=== PATIENT | male | born 1960 | race Caucasian/White ===

== ENCOUNTER 2016-05-12 11:05 | Emergency (ER) | payer OTHER ==
[2016-05-12] MEDS ORDERED: TETRACAINE 0.5% OPHTH SOLN 2 ML BOTTLE ONE (11:30)
[2016-05-12] MEDS ORDERED: FLUORESCEIN NA 1 EA STRIP ONE (11:30)
[2016-05-12] MEDS ORDERED: GENTAMICIN SULFATE 0.3% OPHTHALMIC (EYE DROPS) 5ML BOTTLE ONE (11:30)
[2016-05-12 11:35] VITALS: BP 129/88; PULSE 89; TEMP 97.9; BMI 26.4
[2016-05-12] MEDS ORDERED: TETRACAINE 0.5% HCL 0.6ML DROPPER.BOTTLE OS ONE (11:38)
[2016-05-12] MEDS ORDERED: FLUORESCEIN NA 1 EA STRIP OU ONE (11:38)
[2016-05-12] MEDS ORDERED: GENTAMICIN SULFATE 0.3% OPHTHALMIC (EYE DROPS) 5ML BOTTLE OU ONE (11:39)
[2016-05-12] MEDS ORDERED: IBUPROFEN 400 MG TABLET (FP) PO ONE ×2 (11:40→11:45)
--- NOTE | 2016-05-12 11:43 | PDOC ---
[id number] 4d FLASH BURN TO THE EYES Time Seen by Provider: 05/12/16 11:25 - History of Present Illness Initial Comments: 05/16/16 08:06 The patient sustained a flash burn to the eyes while welding yesterday. Persistent pain and redness bilaterally. Mildly decreased vision. Was wearing goggles, but somehow to light reached his eyes around his eye where Visual acuity 20/50 bilaterally. Conjunctivae moderately injected bilaterally without limbal flush. Pupils equal round and reactive to light and accommodation. Fundi benign. Anterior chambers clear. EOMs full without diplopia. Upon standing, the corneas are clear. There are no abrasions or ulcerations apparent Impression: Mild keratitis secondary to flash burn Plan: Rest of the eyes, cool compresses, and antibiotic drops as directed every 2 hours today. First dose applied in the emergency room. Analgesics for pain. Follow-up [address] Diaz, journeyman power plant operator, to assess healing. Patient and his agreed to timely follow-up in 24 hours as directed. Patient is fully ambulatory and in no severe pain or other distress upon discharge with his to follow up as directed Past History - Past Medical History Allergies/Adverse Reactions: Allergies Allergy/AdvReac Type Severity Reaction Status Date / Time No Known Allergies Allergy Verified 05/12/16 11:09 Home Medications: Ambulatory Orders Atorvastatin Ca [Lipitor] 20 mg PO HS 12/14/12 Escitalopram Oxalate [Lexapro] 30 mg PO DAILY #45 tablet 06/02/13 Acetaminophen W/ Codeine #3 [Tylenol # 3 -] 1 - 2 combo PO Q4H PRN #10 tablet MDD 8 05/12/16 Lorazepam [Ativan] 0.5 mg PO DAILY 05/12/16 GI Disorders: Yes (REFLUX) Hypercholesterolemia: Yes Psychiatric Problems: Yes (DEPRESSION) - Surgical History Appendectomy: Yes - Immunization History Td Vaccination: (UNK) Immunization Up to Date: Yes - Psycho/Social/Smoking Cessation Hx Anxiety: No Suicidal Ideation: No Smoking Status: Yes Smoking History: Former smoker Have you smoked in the past 12 months: No Number of Cigarettes Smoked Daily: 0 Information on smoking cessation initiated: No 'Breaking Loose' booklet given: 08/22/13 Hx Alcohol Use: No Drug/Substance Use Hx: No Substance Use Type: None Hx Substance Use Treatment: No *Physical Exam - Vital Signs Last Vital Signs Temp Pulse Resp BP Pulse Ox 97.9 F 89 16 129/88 100 05/12/16 11:08 05/12/16 11:08 05/12/16 11:08 05/12/16 11:08 05/12/16 11:08 *DC/Admit/Observation/Transfer Diagnosis at time of Disposition: Keratitis - Discharge Dispostion Disposition: HOME Condition at time of disposition: Good Admit: No - Prescriptions Prescriptions: Acetaminophen W/ Codeine #3 [Tylenol # 3 -] 1 - 2 combo PO Q4H PRN #10 tablet MDD 8 PRN Reason: Pain - Referrals Referrals: Fernando Diaz MD [Staff Physician] - 24 hours - Patient Instructions Printed Discharge Instructions: DI for Eye Flash Burn Additional Instructions: Cool compresses. Keeping the eyes closed may ease pain. Avoid bright lights, television, and computer screens Use antibiotic drops every 2 hours while awake today, pain killers as needed See supply chain intern Dr. Diaz tomorrow for recheck. It is important to make sure that healing is progressing properly to avoid permanent eye damage..
== END 2016-05-12 11:53 | disposition home or self-care (01) ==
LOC: FER 11:05
DX: H16.9 Unspecified keratitis (principal); Z87.891 Personal history of nicotine dependence; K21.9 Gastro-esophageal reflux disease without esophagitis; F32.9 Major depressive disorder, single episode, unspecified; E78.00 Pure hypercholesterolemia, unspecified
CPT/HCPCS: 99282-25

== ENCOUNTER 2017-05-15 07:34 | Emergency (ER) | payer OTHER ==
[2017-05-15 07:44] VITALS: BP 143/99; PULSE 82; TEMP 97.6; BMI 26.4
[2017-05-15] MEDS ORDERED: SODIUM CHLORIDE 1,000 ML IV STA (07:50)
[2017-05-15] MEDS ORDERED: KETOROLAC TROMETHAMINE 30 MG/1 ML VIAL IVPUSH ONE (07:50)
--- NOTE | 2017-05-15 07:54 | PDOC ---
History of Present Illness - General Chief Complaint: Chest Pain Stated Complaint: LEFT CHEST PAIN X4 DAYS Time Seen by Provider: 05/15/17 07:42 History Source: Patient Exam Limitations: No Limitations - History of Present Illness Initial Comments: 05/15/17 07:52 56 year old male with history of hyperlipidemia, one pack per day smoker presents with left-sided lateral ribs pain for 4 days. Patient reports a nonexertional reproducible left lateral rib pain worse with movements. Denies midsternal chest pain or shortness of breath. Denies diaphoresis, vomiting. States that the left arm hurts with the left lateral rib pains. States feels like his prior rib fractures. 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 Denies recent illnesses, fevers, chills, cough, vomiting. Past History - Past Medical History Allergies/Adverse Reactions: Allergies Allergy/AdvReac Type Severity Reaction Status Date / Time No Known Allergies Allergy Verified 05/15/17 07:47 Home Medications: Ambulatory Orders Escitalopram Oxalate [Lexapro] 30 mg PO DAILY #45 tablet 06/02/13 Naproxen 500 mg PO BID PRN #14 tablet 05/15/17 COPD: No GI Disorders: Yes (REFLUX) Hypercholesterolemia: Yes Psychiatric Problems: Yes (DEPRESSION) - Surgical History Appendectomy: Yes - Immunization History Td Vaccination: (UNK) Immunization Up to Date: Yes - Suicide/Smoking/Psychosocial Hx Smoking Status: Yes Smoking History: Current every day smoker Have you smoked in the past 12 months: No Number of Cigarettes Smoked Daily: 20 Information on smoking cessation initiated: Yes 'Breaking Loose' booklet given: 05/15/17 Hx Alcohol Use: No Drug/Substance Use Hx: No Substance Use Type: Alcohol Hx Substance Use Treatment: No Review of Systems - Review of Systems Able to Perform ROS?: Yes Comments:: 05/15/17 07:53 GENERAL/CONSTITUTIONAL: No fever, weakness. HEAD, EYES, EARS, NOSE AND THROAT: No change in vision. No ear pain or discharge. No sore throat. CARDIOVASCULAR: No chest pain or shortness of breath. +left lateral rib and left arm pain RESPIRATORY: No cough, wheezing, or hemoptysis. GASTROINTESTINAL: No abdominal pain, nausea, vomiting, diarrhea, or decreased PO intolerance. GENITOURINARY: No dysuria, frequency, or change in urination. MUSCULOSKELETAL: No joint or muscle swelling or pain. No neck or back pain. SKIN: No rash NEUROLOGIC: No headache, vertigo, loss of consciousness, or change in strength/ sensation. ENDOCRINE: No increased thirst. No abnormal weight change. HEMATOLOGIC/LYMPHATIC: No anemia, easy bleeding, or history of blood clots. ALLERGIC/IMMUNOLOGIC: No hives or skin allergy. *Physical Exam - Vital Signs Last Vital Signs Temp Pulse Resp BP Pulse Ox 97.6 F 82 18 143/99 100 05/15/17 07:34 05/15/17 07:34 05/15/17 07:34 05/15/17 07:34 05/15/17 07:34 - Physical Exam Comments: 05/15/17 07:53 GENERAL: Awake, alert, and fully oriented, in no acute distress. HEAD: No signs of trauma EYES: PERRLA, EOMI, sclera anicteric, conjunctiva clear ENT: Auricles normal inspection, hearing grossly normal, nares patent, NECK: Normal ROM, supple LUNGS: Breath sounds equal, clear to auscultation bilaterally. No wheezes, and no crackles HEART: Regular rate and rhythm, normal S1 and S2, no murmurs, rubs or gallops Left lateral ribs ~ribs 4-5 TTP and reproducible ABDOMEN: Soft, nontender, normoactive bowel sounds. No guarding, no rebound. No masses EXTREMITIES: Normal range of motion, no edema. No clubbing or cyanosis. No cords, erythema, or tenderness NEUROLOGICAL: Cranial nerves II through XII grossly intact. Normal speech, normal gait SKIN: Warm, Dry, normal turgor, no rashes or lesions noted. Heart Score/ECG Review - History History: Slightly suspicious - Electrocardiogram EKG: Normal - Age Age: 45-65 - Risk Factors Risk Factors Heart Score: Yes Hx Hypercholesterolemia, Yes Smoking History #1 ECG reviewed & interpreted by me at: 07:55 05/15/17 08:00 nsr 84, no std/fredy, TWI III, normal axis, normal intervals, QTC 441 msec ED Treatment Course - LABORATORY CBC & Chemistry Diagram: 05/15/17 07:03 05/15/17 07:03 - RADIOLOGY Radiology Studies Ordered: Category Date Time Status CHEST PA & LAT [RAD] Stat Radiology 05/15/17 07:50 Ordered RIBS-LEFT SIDE [RAD] Stat Radiology 05/15/17 07:50 Ordered Medical Decision Making - Medical Decision Making 05/15/17 07:58 Vital Signs Temp Pulse Resp BP Pulse Ox 97.6 F 82 18 143/99 100 05/15/17 07:34 05/15/17 07:34 05/15/17 07:34 05/15/17 07:34 05/15/17 07:34 The patient's history and physical appears consistent with muscle skeletal. We' ll obtain a left lateral ribs and chest x-ray to rule out fractures. However, given history of smoking, age and hyperlipidemia, we'll send a troponin and obtain an EKG. However, the workup is negative, I have very low suspicion for acute coronary syndrome at this time. Trial NSAIDs and reassess. 05/15/17 09:05 Chest and rib xray reviewed. No acute findings. CBC, BMP 05/15/17 07:03 05/15/17 07:03 CMP Sodium 133 mmol/L (136-145) L 05/15/17 07:03 Potassium 4.1 mmol/L (3.5-5.1) 05/15/17 07:03 Chloride 106 mmol/L (98-107) 05/15/17 07:03 Carbon Dioxide 25 mmol/L (22-28) 05/15/17 07:03 Anion Gap 2 (8-16) L 05/15/17 07:03 BUN 14 mg/dl (7-18) 05/15/17 07:03 Creatinine 0.8 mg/dl (0.6-1.3) D 05/15/17 07:03 Creat Clearance w eGFR > 60 (>60) 05/15/17 07:03 Random Glucose 93 mg/dl (74-106) 05/15/17 07:03 Calcium 9.2 mg/dl (8.4-10.2) 05/15/17 07:03 Total Bilirubin 1.7 mg/dl (0.2-1.0) H 05/15/17 07:03 AST 20 U/L (10-42) 05/15/17 07:03 ALT 29 U/L (10-40) D 05/15/17 07:03 Alkaline Phosphatase 72 U/L (32-92) 05/15/17 07:03 Troponin I < 0.03 ng/ml (0.03-0.50) L 05/15/17 07:03 Total Protein 7.1 g/dl (6.4-8.3) 05/15/17 07:03 Albumin 4.5 g/dl (3.5-5.0) 05/15/17 07:03 The patient reports feeling better with Toradol. I suspect this is likely muscle skeletal versus bruised rib. What the patient follow with the primary care physician. Patient went to go home. I discussed the physical exam findings, ancillary test results and final diagnoses with the patient. I answered all of the patient's questions. The patient was satisfied with the care received and felt comfortable with the discharge plan and treatment plan. The patient will call their primary care physician within 24 hours to arrange follow-up and will return to the Emergency Department with any new, persistant or worsening symptoms. *DC/Admit/Observation/Transfer Diagnosis at time of Disposition: Musculoskeletal pain - Discharge Dispostion Disposition: HOME Condition at time of disposition: Stable Admit: No - Prescriptions Prescriptions: Naproxen 500 mg PO BID PRN #14 tablet PRN Reason: Pain - Referrals Referrals: Khurram Weaver MD [Primary Care Provider] - - Patient Instructions Printed Discharge Instructions: DI for Musculoskeletal Pain Additional Instructions: Your xray, ECG, and blood work are unremarkable. Please take 500 mg naproxen every 12 hours as needed for pain. Follow up with your doctor. - Post Discharge Activity
[2017-05-15] MEDS ORDERED: KETOROLAC TROMETHAMINE 30 MG/1 ML VIAL ONE (08:15)
[2017-05-15 08:23] LABS: BASO % 0.5 % (0-2.0); EOS % 3.4 % (0-4.5); HEMATOCRIT 48.3 % (35.4-49); HEMOGLOBIN 16.6 GM/dl (11.7-16.9); LYMPH % 28.7 % (8-40); MCH 30.4 pg (25.7-33.7); MCHC 34.4 g/dl (32.0-35.9); MEAN CELL VOLUME 88.3 fl (80-96); MEAN PLT VOLUME 7.5 fl (7.5-11.1); MONO % 7.5 % (3.8-10.2); NEUT % 59.9 % (42.8-82.8); PLATELET COUNT 340 K/MM3 (134-434); RBC 5.47 M/mm3 (4.00-5.60); RDW 12.4 % (11.9-15.9); WHITE BLOOD COUNT 7.9 K/mm3 (4.0-10.8)
[2017-05-15 08:33] LABS: ALBUMIN 4.5 g/dl (3.5-5.0); ALK PHOS 72 U/L (32-92); ANION GAP 2 (8-16); BILIRUBIN,TOTAL 1.7 mg/dl (0.2-1.0); BLOOD UREA NITROGEN 14 mg/dl (7-18); CHLORIDE 106 mmol/L (98-107); CO2 25 mmol/L (22-28); CREATININE 0.8 mg/dl (0.6-1.3); GLUCOSE,RANDOM 93 mg/dl (74-106); POTASSIUM 4.1 mmol/L (3.5-5.1); SGOT/AST 20 U/L (10-42); SGPT/ALT 29 U/L (10-40); SODIUM 133 mmol/L (136-145); TOT PROT 7.1 g/dl (6.4-8.3)
[2017-05-15 08:38] LABS: CALCIUM 9.2 mg/dl (8.4-10.2)
--- NOTE | 2017-05-16 15:34 | EKG ---
Test Reason : Blood Pressure : / mmHG Vent. Rate : 084 BPM Atrial Rate : 084 BPM P-R Int : 148 ms QRS Dur : 080 ms QT Int : 374 ms P-R-T Axes : 043 020 018 degrees QTc Int : 441 ms NORMAL SINUS RHYTHM NONSPECIFIC T WAVE ABNORMALITY NO PREVIOUS ECGS AVAILABLE Confirmed by BETTE MADRIGAL MD ([id number]) on 05/16/2017 3:34:22 PM Referred By: DR BELLE Confirmed By:BETTE MADRIGAL MD
== END 2017-05-15 09:26 | disposition home or self-care (01) ==
LOC: FER 07:34
PROC: 3E0333Z Introduction of Anti-inflammatory into Peripheral Vein, Percutaneous Approach (ICD-10-PCS; principal; 2017-05-15)
PROC: 3E0337Z Introduction of Electrolytic and Water Balance Substance into Peripheral Vein, Percutaneous Approach (ICD-10-PCS; 2017-05-15)
DX: M79.1 Myalgia (principal); E78.5 Hyperlipidemia, unspecified; F17.210 Nicotine dependence, cigarettes, uncomplicated; K21.9 Gastro-esophageal reflux disease without esophagitis; F32.9 Major depressive disorder, single episode, unspecified
CPT/HCPCS: 36415; 71046-TC; 71101-TC; 80053; 84484; 85025; 93005; 99283-25

== ENCOUNTER 2017-08-01 06:02 | Day surgery (SDC) | payer OTHER ==
[2017-07-25 12:01] VITALS: BMI 27.8
[2017-08-01 06:23] VITALS: TEMP 97.7
[2017-08-01] MEDS ORDERED: BUPIVACAINE HCL/EPINEPHRINE/PF 30 ML VIAL IJ ONE (07:08)
[2017-08-01] MEDS ORDERED: DEXAMETHASONE SOD PHOSPHATE/PF 10 MG/ML SDV ONE (07:13)
[2017-08-01] MEDS ORDERED: MEPIVACAINE HCL/PF 1% 30 ML VIAL ONE (07:13)
[2017-08-01] MEDS ORDERED: BUPIVACAINE HCL/PF (5 MG/ML) 30 ML VIAL IJ ONE (07:14)
[2017-08-01] MEDS ORDERED: MIDAZOLAM HCL 2 MG/2 ML SINGLE DOSE VIAL ONE (07:14)
--- NOTE | 2017-08-01 07:34 | HP ---
Admitting History and Physical - Admission History of Present Illness: The patient is a 56 yo male who is here today for surgery on his right shoulder. He has had chronic problems with this shoulder and has had 4 previous surgeries to this shoulder. He has pain in this shoulder with movement, having difficulty reaching into his back pocket. He takes oxycodone to relieve his pain. The patient denies any CP/SOB/fevers. History Source: Patient Limitations to Obtaining History: No Limitations - Past Medical History Cardiovascular: No: Deep Vein Thrombosis, HTN Pulmonary: No: Sleep Apnea Gastrointestinal: Yes: GERD. No: Gastritis Renal/: No: Hematuria, Renal Calculi, UTI Endocrine: No: Diabetes Mellitus (right shoulder surgery x4 left elbow surgery appendectomy) - Past Surgical History Additional Past Surgical History: right shoulder surgery x4 left elbow surgery appendectomy lumbar fusion, multiple surgery x3 in the lumbar region - Smoking History Smoking history: Current every day smoker Have you smoked in the past 12 months: Yes Aproximately how many cigarettes per day: 20 - Alcohol/Substance Use Hx Alcohol Use: No Home Medications - Allergies Allergies/Adverse Reactions: Allergies Allergy/AdvReac Type Severity Reaction Status Date / Time No Known Allergies Allergy Verified 05/15/17 07:47 - Home Medications Home Medications: Ambulatory Orders Oxycodone HCl 10 mg PO Q4H PRN 07/25/17 Venlafaxine HCl ER [Effexor Xr -] 300 mg PO DAILY 07/25/17 Review of Systems - Review of Systems Constitutional: denies: Chills, Fever Neck: denies: Decreased ROM, Pain on Movement Cardiovascular: denies: Chest Pain, Palpitations, Shortness of Breath Respiratory: denies: Cough, Snoring, SOB Gastrointestinal: denies: Abdominal Pain, Constipation Genitourinary: denies: Burning, Hematuria Musculoskeletal: reports: Decreased ROM (irght shoulder). denies: Back Pain Neurological: denies: Change in LOC, Headache, Seizure Hematology/Lymphatic: denies: Easily Bruised, Excessive Bleeding Physical Examination Vital Signs: Vital Signs Temperature 97.7 F 08/01/17 06:14 Pulse Rate 70 08/01/17 06:14 Respiratory Rate 18 08/01/17 06:14 Blood Pressure 145/80 08/01/17 06:14 O2 Sat by Pulse Oximetry (%) 100 08/01/17 06:14 Constitutional: Yes: Well Nourished, Calm Eyes: Yes: Conjunctiva Clear. No: Sclera Icterus HENT: Yes: WNL, Atraumatic, Normocephalic Neck: Yes: Supple, Trachea Midline Cardiovascular: Yes: WNL, Regular Rate and Rhythm Respiratory: Yes: WNL, Regular, CTA Bilaterally Gastrointestinal: Yes: WNL, Normal Bowel Sounds, Soft Extremities: Yes: Other (bicipatal groove pain with pronation/supination). No: Calf Tenderness, Deformity Edema: No Peripheral Pulses: Left Doralis Pedis: 2+, Right Dorsalis Pedis: 2+ Wound/Incision: Yes: Clean/Dry, Well Approximated Neurological: Yes: WNL, Alert, Oriented ...Motor Strength: LUE, LLE, RUE, RLE Psychiatric: Yes: WNL, Alert, Oriented Assessment/Plan 56 yo male with right shoulder pain /right shoulder cuff tendinosis, biceps tendonitis Plan for surgery today with regional block/local/sedation for arthroscopic debriedement/open bicpes tenodesis IV abx at time of surgery DVT ppx with SCDs b/l/early ambulation
[2017-08-01] MEDS ORDERED: PROPOFOL 20 ML ONE ×3 (07:41)
[2017-08-01] MEDS ORDERED: SUCCINYLCHOLINE CHLORIDE 200 MG/10 ML VIAL ONE (07:41)
[2017-08-01] MEDS ORDERED: EPINEPHrine 1:1,000 1 MG/1 ML - 30ML VIAL (INJECTION) ONE (08:04)
[2017-08-01] MEDS ORDERED: oxyCODONE HCL 5 MG TABLET PO PRN (09:22)
[2017-08-01] MEDS ORDERED: oxyCODONE HCL 10 MG SUSTAINED ACTING TABLET PO ONE (09:22)
--- NOTE | 2017-08-01 09:26 | OP ---
Operative Note - Note: Operative Date: 08/01/17 Pre-Operative Diagnosis: right shoulder cuff tendinosis, biceps tendonitis Operation: RSA, debridement, decompression, open biceps tenodesis Post-Operative Diagnosis: Same as Pre-op Anesthesia: General Operative Report Dictated: Yes
--- NOTE | 2017-08-01 09:27 | DS ---
Physical Examination Vital Signs: Vital Signs Temperature 97.7 F 08/01/17 06:14 Pulse Rate 70 08/01/17 06:14 Respiratory Rate 18 08/01/17 06:14 Blood Pressure 145/80 08/01/17 06:14 O2 Sat by Pulse Oximetry (%) 100 08/01/17 06:14 Discharge Summary Reason For Visit: INCOMPLETE ROTATOR CUFF TEAR, RIGHT SHLD Condition: Good - Instructions Diet, Activity, Other Instructions: Post Operative Instructions: Shoulder Arthroscopy Dr Felix Johns 1. Pain following a Shoulder Arthroscopy is variable and can be significant. Some patients will have more pain than others. You have been provided with a prescription for medication that contains a narcotic. You are not allowed to drive while on this medication. You should NOT take Tylenol (Acetaminophen) when taking the pain medication ( it will result in an overdose). Feel free to take medications such as Ibuprofen or Naprosyn in addition to the pain medicine if you do not have any problems with the NSAID class of medications. 2. Apply ice to the shoulder for 15 minutes every hour. You may continue this for as many days as necessary. 3. You may find sleeping on an incline (reclining chair) to be more comfortable for the first few days. 4. You must remain in your sling at all times except when showering. The only exception to this is to allow you to stretch your elbow a few times a day to prevent your hand and forearm from swelling. 5. You are not to use your arm to reach for anything, lift anything or carry anything until instructed otherwise. 6. You may remove the bandages in 48 hours. You may shower at that point. 7. Place band-aids on the incisions after your shower.Do not put any creams or lotions on the incision until after the sutures are removed. 8. Please call the office to schedule a visit to have your sutures removed. 9. If for any reason you believe you may have an infection or are concerned, please feel free to call me. I can be reached through our office number 24 hours a day. 10. Please call our office with any questions; we will review the surgical findings during your post-operative visit. Disposition: HOME - Home Medications Comprehensive Discharge Medication List: Ambulatory Orders Oxycodone HCl 10 mg PO Q4H PRN 07/25/17 Venlafaxine HCl ER [Effexor Xr -] 300 mg PO DAILY 07/25/17
[2017-08-01] MEDS ORDERED: oxyCODONE HCL 5 MG TABLET ONE (10:00)
[2017-08-01] MEDS ORDERED: oxyCODONE HCL 10 MG SUSTAINED ACTING TABLET ONE (10:00)
[2017-08-01 11:01] VITALS: BP 119/65; PULSE 66
--- NOTE | 2017-08-01 14:12 | SURG ---
Surgery Pilot Control Operator Note Pilot Control Operator: Breann De La Torre PA-C Date of Service: 08/01/17 Diagnosis: right shoulder cuff tendinosis, biceps tendonitis Procedure: RSA, debridement, decompression, open biceps tenodesis I was present for the entirety of the operative procedure. For further detail, please refer to operative report. Visit type - Case Type Case Type: Scheduled Admission - Emergency Emergency Visit: No - New patient This patient is new to me today: Yes Date on this admission: 08/01/17
== END 2017-08-01 10:50 | disposition home or self-care (01) ==
LOC: FASU 06:02
PROVIDERS: ATTEND Orthopaedic Surgery
PROC: 0RNJ4ZZ Release Right Shoulder Joint, Percutaneous Endoscopic Approach (ICD-10-PCS; 2017-08-01)
PROC: 0LS30ZZ Reposition Right Upper Arm Tendon, Open Approach (ICD-10-PCS; 2017-08-01)
PROC: 0LB14ZZ Excision of Right Shoulder Tendon, Percutaneous Endoscopic Approach (ICD-10-PCS; principal; 2017-08-01 08:23)
DX: M75.111 Incomplete rotator cuff tear or rupture of right shoulder, not specified as traumatic (principal); M75.21 Bicipital tendinitis, right shoulder; M75.51 Bursitis of right shoulder
CPT/HCPCS: 88304-TC

== ENCOUNTER 2018-05-15 07:17 | Day surgery (SDC) | payer OTHER ==
[2018-05-06 12:46] VITALS: BMI 27.8
[2018-05-15] MEDS ORDERED: EPINEPHrine 1:1,000 1 MG/1 ML - 30ML VIAL (INJECTION) ONE ×2 (07:59→09:29)
[2018-05-15] MEDS ORDERED: BUPIVACAINE HCL/EPINEPHRINE/PF 30 ML VIAL IJ ONE ×2 (07:59→10:46)
[2018-05-15] MEDS ORDERED: PROPOFOL 20 ML ONE (08:34)
[2018-05-15] MEDS ORDERED: MIDAZOLAM HCL 2 MG/2 ML SINGLE DOSE VIAL ONE ×2 (08:34→10:11)
[2018-05-15] MEDS ORDERED: BUPIVACAINE LIPOSOME/PF (EXPAREL) 266 MG/20 ML VIAL ONE (10:11)
[2018-05-15] MEDS ORDERED: BUPIVACAINE HCL/PF (5 MG/ML) 30 ML VIAL IJ ONE (10:12)
[2018-05-15] MEDS ORDERED: ceFAZolin SODIUM 1 GM VIAL ONE (11:01)
[2018-05-15] MEDS ORDERED: ONDANSETRON 4 MG/2 ML VIAL ONE (11:09)
[2018-05-15] MEDS ORDERED: DEXAMETHASONE SOD PHOSPHATE 4 MG/1 ML VIAL ONE (11:09)
[2018-05-15] MEDS ORDERED: oxyCODONE HCL 5 MG TABLET PO PRN (12:08)
[2018-05-15] MEDS ORDERED: ONDANSETRON 4 MG/2 ML VIAL IVPUSH PRN (12:08)
[2018-05-15] MEDS ORDERED: oxyCODONE HCL 10 MG SUSTAINED ACTING TABLET PO ONE (12:08)
--- NOTE | 2018-05-15 12:10 | OP ---
Operative Note - Note: Operative Date: 05/15/18 Pre-Operative Diagnosis: Right shoulder rotator cuff tear Post-Operative Diagnosis: Other (Right shoulder AO, rotator cuff tendinosis, near FT-RCT) Surgeon: Felix Johns Genetic Counsellor: Breann De La Torre Anesthesiologist/VISITOR SERVICES SPECIALIST: Jani Gonzalez Anesthesia: General Operative Report Dictated: Yes
--- NOTE | 2018-05-15 12:11 | DS ---
Physical Examination Vital Signs: Vital Signs Temperature 98 F 05/15/18 08:09 Pulse Rate 69 05/15/18 08:09 Respiratory Rate 18 05/15/18 08:09 Blood Pressure 138/76 05/15/18 08:09 O2 Sat by Pulse Oximetry (%) 98 05/15/18 08:09 Discharge Summary Reason For Visit: RTC TENDINOSIS RIGHT SHOULDER Condition: Good - Instructions Diet, Activity, Other Instructions: Post Operative Instructions: Shoulder Arthroscopy Dr Felix Johns 1. Pain following a Shoulder Arthroscopy is variable and can be significant. Some patients will have more pain than others. You have been provided with a prescription for medication that contains a narcotic. You are not allowed to drive while on this medication. You should also take Tylenol (Acetaminophen) when taking the pain medication. Feel free to take medications such as Ibuprofen or Naprosyn in addition to the pain medicine if you do not have any problems with the NSAID class of medications. 2. Apply ice to the shoulder for 15 minutes every hour. You may continue this for as many days as necessary. 3. You may find sleeping on an incline (reclining chair) to be more comfortable for the first few days. 4. You must remain in your sling at all times except when showering. The only exception to this is to allow you to stretch your elbow a few times a day to prevent your hand and forearm from swelling. 5. You are not to use your arm to reach for anything, lift anything or carry anything until instructed otherwise. 6. You may remove the bandages in 48 hours. You may shower at that point. 7. Place band-aids on the sutures after your shower.Do not put any creams or lotions on the incision until after the sutures are removed. 8. Please call the office to schedule a visit to have your sutures removed. 9. If for any reason you believe you may have an infection or are concerned, please feel free to call me. I can be reached through our office number 24 hours a day. 10. Please call our office with any questions; we will review the surgical findings during your post-operative visit. Disposition: HOME - Home Medications Comprehensive Discharge Medication List: Ambulatory Orders Oxycodone HCl 10 mg PO Q4H PRN 07/25/17 Venlafaxine HCl ER [Effexor Xr -] 300 mg PO DAILY 07/25/17 Bupropion HCl [Wellbutrin -] 100 mg PO DAILY 05/06/18
[2018-05-15] MEDS ORDERED: LACTATED RINGERS SOLUTION 1,000 ML IV SCH (12:15)
[2018-05-15 13:57] VITALS: BP 128/72; PULSE 70; TEMP 98
--- NOTE | 2018-05-15 16:15 | SURG ---
Surgery Behavioral Instructor Note Behavioral Instructor: Breann De La Torre PA-C Date of Service: 05/15/18 Diagnosis: Right shoulder rotator cuff tear Procedure: Other (Right shoulder AO, rotator cuff tendinosis, near FT-RCT) I was present for the entirety of the operative procedure. For further detail, please refer to operative report. Visit type - Case Type Case Type: Scheduled - Emergency Emergency Visit: No - New patient This patient is new to me today: Yes Date on this admission: 05/15/18
--- NOTE | 2018-05-19 13:57 | PATH ---
Surgical Pathology Report Patient Name: ADARSH WOLFE [facility]. Rec. #: [id number] /Age/Gender: 1960 (Age: 57) / M Account: [id number] Location: [facility] AM[facility] Taken: 05/15/2018 Received: 05/15/2018 Reported: 05/19/2018 Physicians: Felix Johns M.D. Specimen(s) Received RIGHT SHOULDER SHAVINGS Clinical History RTC tendinosis right shoulder Final Diagnosis SHOULDER SHAVINGS, RIGHT, ARTHROSCOPY: FRAGMENTS OF DENSE FIBROCONNECTIVE TISSUE, ADIPOSE TISSUE, AND SKELETAL MUSCLE. Electronically Signed Magdalene Stone M.D. Gross Description Received in formalin labeled "right shoulder shavings," is a 2.5 x 2.0 x 0.3 cm aggregate of hassan soft tissue fragments. The formalin is filtered and the specimen is entirely submitted in one cassette. /05/18/2018 saudi05/18/2018
== END 2018-05-15 13:57 | disposition home or self-care (01) ==
LOC: FASU 07:17
PROVIDERS: ATTEND Orthopaedic Surgery
PROC: 0RBJ4ZZ Excision of Right Shoulder Joint, Percutaneous Endoscopic Approach (ICD-10-PCS; 2018-05-15)
PROC: 0LQ14ZZ Repair Right Shoulder Tendon, Percutaneous Endoscopic Approach (ICD-10-PCS; principal; 2018-05-15 11:23)
DX: M75.111 Incomplete rotator cuff tear or rupture of right shoulder, not specified as traumatic (principal); M19.011 Primary osteoarthritis, right shoulder; M65.811 Other synovitis and tenosynovitis, right shoulder
CPT/HCPCS: 88304-TC; 94760

== ENCOUNTER 2019-12-27 08:09 | Day surgery (SDC) | payer OTHER ==
[2019-12-24 10:01] VITALS: BMI 26.4
[2019-12-27] MEDS ORDERED: PROPOFOL 20 ML ONE ×3 (09:13)
[2019-12-27] MEDS ORDERED: LIDOCAINE HCL/PF 2% SDV 5ML VIAL ONE (09:13)
[2019-12-27 14:31] VITALS: TEMP 98
[2019-12-27 14:34] VITALS: BP 105/63; PULSE 73
--- NOTE | 2019-12-30 14:58 | PATH ---
Surgical Pathology Report Patient Name: ADARSH WOLFE [facility]. Rec. #: [id number] /Age/Gender: 1960 (Age: 59) / M Account: [id number] Location: [facility] Taken: 12/27/2019 Received: 12/27/2019 Reported: 12/30/2019 Physicians: Alan Sandy M.D. Specimen(s) Received A: SECOND PORTION DUODENUM B: GASTRIC ANTRUM C: GASTRIC POLYP D: POLYP ILEOCECAL VALVE E: POLYP RIGHT COLON Clinical History Dysphagia, family history of colon cancer Postoperative diagnosis: Gastritis, duodenitis, gastric polyps, colon polyps Final Diagnosis A. SECOND PORTION OF DUODENUM, BIOPSY: DUODENAL MUCOSA WITH NO PATHOLOGIC FINDINGS. B. GASTRIC ANTRUM, BIOPSY: MILD CHRONIC GASTRITIS. IMMUNOSTAIN IS NEGATIVE FOR H.PYLORI ORGANISMS. C. GASTRIC POLYP, BIOPSY: GASTRIC FUNDIC GLAND POLYP. IMMUNOSTAIN IS NEGATIVE FOR H PYLORI ORGANISMS. D. ILEOCECAL VALVE, POLYP, BIOPSY: HYPERPLASTIC POLYP. E. RIGHT COLON, POLYP, BIOPSY: HYPERPLASTIC POLYP. Electronically Signed Shanon Painter M.D. Gross Description A. Received in formalin, labeled "biopsy second portion of duodenum" is a hassan, irregular portion of soft tissue measuring 0.3 cm. in greatest dimension. The specimen is submitted in toto in one cassette. B. Received in formalin, labeled "biopsy gastric antrum" are 2 hassan, irregular portions of soft tissue measuring 0.3 and 0.4 cm. in greatest dimension. The specimens are submitted in toto in one cassette. C. Received in formalin, labeled "biopsy gastric polyp" are 2 hassan, irregular portions of soft tissue measuring 0.4 and 0.6 cm. in greatest dimension. The specimens are submitted in toto in one cassette. D. Received in formalin, labeled "biopsy polyp ileocecal valve" is a hassan, irregular portion of soft tissue measuring 0.3 cm. in greatest dimension. The specimen is submitted in toto in one cassette. E. Received in formalin, labeled "biopsy polyp right colon" is a hassan, irregular portion of soft tissue measuring 0.3 cm. in greatest dimension. The specimen is submitted in toto in one cassette. 12/28/2019 saudi12/28/2019
== END 2019-12-27 11:00 | disposition home or self-care (01) ==
LOC: FASU-ENDO 08:09
PROVIDERS: ATTEND Internal Medicine Gastroenterology
PROC: 0DBC8ZX Excision of Ileocecal Valve, Via Natural or Artificial Opening Endoscopic, Diagnostic (ICD-10-PCS; 2019-12-27)
PROC: 0DB98ZX Excision of Duodenum, Via Natural or Artificial Opening Endoscopic, Diagnostic (ICD-10-PCS; 2019-12-27)
PROC: 0DB68ZX Excision of Stomach, Via Natural or Artificial Opening Endoscopic, Diagnostic (ICD-10-PCS; 2019-12-27)
PROC: 0DB48ZX Excision of Esophagogastric Junction, Via Natural or Artificial Opening Endoscopic, Diagnostic (ICD-10-PCS; 2019-12-27)
PROC: 0D748DZ Dilation of Esophagogastric Junction with Intraluminal Device, Via Natural or Artificial Opening Endoscopic (ICD-10-PCS; 2019-12-27)
PROC: 0DBK8ZX Excision of Ascending Colon, Via Natural or Artificial Opening Endoscopic, Diagnostic (ICD-10-PCS; principal; 2019-12-27 09:33)
DX: Z12.11 Encounter for screening for malignant neoplasm of colon (principal); Z80.0 Family history of malignant neoplasm of digestive organs; D12.2 Benign neoplasm of ascending colon; D12.0 Benign neoplasm of cecum; R12 Heartburn; K29.80 Duodenitis without bleeding; K29.50 Unspecified chronic gastritis without bleeding; K31.7 Polyp of stomach and duodenum; R13.10 Dysphagia, unspecified
CPT/HCPCS: 88305-TC; 88342-TC

== ENCOUNTER 2020-09-27 10:17 | Emergency (ER) | payer OTHER ==
[2020-09-27 10:26] VITALS: BP 149/102; PULSE 87; TEMP 97.9; BMI 25.1
[2020-09-27] MEDS ORDERED: KETOROLAC TROMETHAMINE 30 MG/1 ML VIAL IM ONE (10:27)
[2020-09-27] MEDS ORDERED: KETOROLAC TROMETHAMINE 30 MG/1 ML VIAL ONE (10:29)
== END 2020-09-27 10:48 | disposition home or self-care (01) ==
LOC: FER 10:17
PROC: 3E0233Z Introduction of Anti-inflammatory into Muscle, Percutaneous Approach (ICD-10-PCS; principal; 2020-09-27)
DX: M25.512 Pain in left shoulder (principal)
CPT/HCPCS: 99284-25

== ENCOUNTER 2020-10-18 06:02 | Day surgery (SDC) | payer OTHER ==
[2020-10-12 16:28] VITALS: BMI 25.1
[2020-10-18] MEDS ORDERED: MIDAZOLAM HCL 2 MG/2 ML SINGLE DOSE VIAL ONE (07:08)
[2020-10-18] MEDS ORDERED: ROPIVACAINE HCL 0.5% 30ML VIAL ONE (07:08)
[2020-10-18] MEDS ORDERED: SUCCINYLCHOLINE CHLORIDE 200 MG/10 ML SYRINGE ONE (07:15)
[2020-10-18] MEDS ORDERED: DEXAMETHASONE SOD PHOSPHATE 4 MG/1 ML VIAL ONE ×2 (07:15→09:03)
[2020-10-18] MEDS ORDERED: ceFAZolin SODIUM 1 GM VIAL ONE (07:15)
[2020-10-18] MEDS ORDERED: PROPOFOL 20 ML ONE ×2 (07:15)
[2020-10-18] MEDS ORDERED: ONDANSETRON 4 MG/2 ML VIAL ONE ×2 (07:15→09:03)
[2020-10-18] MEDS ORDERED: EPINEPHrine 1:1,000 1 MG/1 ML - 30ML VIAL (INJECTION) ONE (07:20)
[2020-10-18] MEDS ORDERED: BUPIVACAINE HCL/EPINEPHRINE/PF 30 ML VIAL IJ ONE (07:20)
[2020-10-18 10:15] VITALS: TEMP 98
[2020-10-18 10:53] VITALS: BP 132/78; PULSE 82
[2020-10-18] MEDS ORDERED: LACTATED RINGERS SOLUTION 1,000 ML IV SCH (11:30)
[2020-10-18] MEDS ORDERED: ONDANSETRON 4 MG/2 ML VIAL IVPUSH PRN (11:30)
[2020-10-18] MEDS ORDERED: oxyCODONE HCL 5 MG TABLET PO PRN ×2 (11:30)
[2020-10-18] MEDS ORDERED: ACETAMINOPHEN 325 MG TABLET (FP) PO PRN (11:30)
== END 2020-10-18 10:54 | disposition home or self-care (01) ==
LOC: FASU 06:02
PROVIDERS: ATTEND Orthopaedic Surgery
PROC: 0LS40ZZ Reposition Left Upper Arm Tendon, Open Approach (ICD-10-PCS; 2020-10-18)
PROC: 0RBK4ZZ Excision of Left Shoulder Joint, Percutaneous Endoscopic Approach (ICD-10-PCS; principal; 2020-10-18 08:18)
PROC: 0RBK4ZZ Excision of Left Shoulder Joint, Percutaneous Endoscopic Approach (ICD-10-PCS; 2020-10-18 08:18)
DX: M75.112 Incomplete rotator cuff tear or rupture of left shoulder, not specified as traumatic (principal); M75.52 Bursitis of left shoulder; M75.02 Adhesive capsulitis of left shoulder; M75.22 Bicipital tendinitis, left shoulder

== ENCOUNTER 2021-01-19 18:55 | Emergency (ER) | payer OTHER ==
[2021-01-19] MEDS ORDERED: morphine CARPU-JECT 4 MG/1 ML DISP.SYRIN IVPUSH ONE (19:02)
[2021-01-19] MEDS ORDERED: morphine SULFATE 4 MG/ML VIAL ONE (19:08)
[2021-01-19] MEDS ORDERED: ONDANSETRON 4 MG/2 ML VIAL IVPB ONE (19:14)
[2021-01-19] MEDS ORDERED: SODIUM CHLORIDE 1,000 ML ONE (19:14)
[2021-01-19] MEDS ORDERED: KETOROLAC TROMETHAMINE 30 MG/1 ML VIAL IVPUSH ONE (19:14)
[2021-01-19] MEDS ORDERED: KETOROLAC TROMETHAMINE 30 MG/1 ML VIAL ONE (19:15)
[2021-01-19] MEDS ORDERED: ONDANSETRON 4 MG/2 ML VIAL ONE (19:15)
[2021-01-19 19:28] LABS: BASO % 1.6 % (0-2.0); EOS % 3.3 % (0-4.5); HEMOGLOBIN 15.9 GM/dl (11.7-16.9); LYMPH % 27.8 % (8-40); MCH 29.9 pg (25.7-33.7); MCHC 33.8 g/dl (32.0-35.9); MEAN CELL VOLUME 88.4 fl (80-96); MEAN PLT VOLUME 7.3 fl (7.5-11.1); MONO % 7.9 % (3.8-10.2); NEUT % 59.4 % (42.8-82.8); PLATELET COUNT 341 10^3/uL (134-434); RBC 5.31 M/mm3 (4.00-5.60); RDW 12.9 % (11.9-15.9); WHITE BLOOD COUNT 11.1 K/mm3 (4.0-10.8)
[2021-01-19 19:35] VITALS: TEMP 97.6; BMI 24.4
[2021-01-19 19:41] LABS: ALBUMIN 4.5 g/dl (3.4-5.0); BILIRUBIN,TOTAL 0.8 mg/dl (0.2-1); CREATININE 1.1 mg/dl (0.55-1.3); TOT PROT 6.9 g/dl (6.4-8.2)
[2021-01-19] MEDS ORDERED: HYDROmorphone HCL CARPU-JECT 1 MG/1 ML DISP.SYRIN IVPUSH ONE (19:55)
[2021-01-19] MEDS ORDERED: HYDROmorphone HCL/PF 1 MG/ML VIAL ONE (19:56)
[2021-01-19] MEDS ORDERED: diazePAM CARPU-JECT 10 MG/2 ML DISP.SYRIN IVPUSH ONE (20:14)
[2021-01-19] MEDS ORDERED: diazePAM CARPU-JECT 10 MG/2 ML DISP.SYRIN ONE (20:15)
[2021-01-19] MEDS ORDERED: METHOCARBAMOL 500 MG TABLET PO ONE (21:31)
[2021-01-19] MEDS ORDERED: METHOCARBAMOL 500 MG TABLET ONE (21:34)
[2021-01-19 21:43] VITALS: BP 158/67; PULSE 82
== END 2021-01-19 21:43 | disposition home or self-care (01) ==
LOC: FER 18:55
PROC: 3E033NZ Introduction of Analgesics, Hypnotics, Sedatives into Peripheral Vein, Percutaneous Approach (ICD-10-PCS; principal; 2021-01-19)
PROC: 3E0333Z Introduction of Anti-inflammatory into Peripheral Vein, Percutaneous Approach (ICD-10-PCS; 2021-01-19)
PROC: 3E033GC Introduction of Other Therapeutic Substance into Peripheral Vein, Percutaneous Approach (ICD-10-PCS; 2021-01-19)
PROC: 3E0337Z Introduction of Electrolytic and Water Balance Substance into Peripheral Vein, Percutaneous Approach (ICD-10-PCS; 2021-01-19)
PROC: 3E033GC Introduction of Other Therapeutic Substance into Peripheral Vein, Percutaneous Approach (ICD-10-PCS; 2021-01-19)
PROC: 3E033GC Introduction of Other Therapeutic Substance into Peripheral Vein, Percutaneous Approach (ICD-10-PCS; 2021-01-19)
DX: M54.5 Low back pain (principal)
CPT/HCPCS: 36415; 74176-TC; 80053; 81003; 85025; 87086; 99285-25

== ENCOUNTER 2023-08-10 17:41 | Emergency (ER) | payer OTHER ==
[2023-08-10] MEDS ORDERED: GLUCAGON 1 MG KIT ONE (17:59)
[2023-08-10 18:12] VITALS: BP 139/81; PULSE 88; RESP 20; TEMP 98; BMI 23.7
[2023-08-10] MEDS: FAMOTIDINE 20 MG/50 ML IVPB 20 MG/50 ML MG IVPB ONE (19:14)
[2023-08-10] MEDS: GlUCAGON HUMAN RECOMBINANT 1 MG/VIAL IVPUSH ONE (19:14)
[2023-08-10] MEDS: ONDANSETRON 4 MG/2 ML VIAL IVPUSH ONE (19:15)
[2023-08-10 19:38] LABS: HEMATOCRIT 47.2 % (35.4-49); HEMOGLOBIN 15.9 G/dL (11.7-16.9); MCHC 33.8 g/dl (32.0-35.9); MEAN PLT VOLUME 7.2 fl (7.5-11.1); PLATELET COUNT 310.5 10^3/uL (134-434); RBC 5.49 10^6/uL (4.00-5.60); WHITE BLOOD COUNT 12.8 10^3/uL (4.0-10.8)
[2023-08-10 20:05] LABS: ALBUMIN 4.7 g/dl (3.4-5.0); BILIRUBIN,TOTAL 0.9 mg/dl (0.2-1); CALCIUM 9.5 mg/dl (8.5-10.1); CREATININE 0.9 mg/dl (0.6-1.3); POTASSIUM 4.1 mmol/L (3.5-5.1); TOT PROT 6.8 g/dl (6.4-8.2)
== END 2023-08-10 20:03 | disposition home or self-care (01) ==
LOC: FER 17:41
PROC: 3E033GC Introduction of Other Therapeutic Substance into Peripheral Vein, Percutaneous Approach (ICD-10-PCS; principal; 2023-08-10)
PROC: 3E030GC Introduction of Other Therapeutic Substance into Peripheral Vein, Open Approach (ICD-10-PCS; 2023-08-10)
PROC: 3E030GC Introduction of Other Therapeutic Substance into Peripheral Vein, Open Approach (ICD-10-PCS; 2023-08-10)
DX: T18.128A Food in esophagus causing other injury, initial encounter (principal); R11.0 Nausea; R07.0 Pain in throat; R07.9 Chest pain, unspecified; X58.XXXA Exposure to other specified factors, initial encounter
CPT/HCPCS: 36415; 70490-TC; 71250-TC; 80053; 84484; 85025; 99284-25

== ENCOUNTER 2023-11-10 10:11 | Day surgery (SDC) | payer OTHER ==
[2023-11-06 12:55] VITALS: BMI 25.2
[2023-11-10 10:34] VITALS: RESP 18
[2023-11-10] MEDS ORDERED: PROPOFOL 20 ML ONE (11:52)
[2023-11-10 12:06] VITALS: TEMP 97
[2023-11-10 12:21] VITALS: PULSE 85
[2023-11-10 12:22] VITALS: BP 138/86
== END 2023-11-10 12:59 | disposition home or self-care (01) ==
LOC: FASU-ENDO 10:11
PROVIDERS: ATTEND Internal Medicine Gastroenterology
PROC: 0D748DZ Dilation of Esophagogastric Junction with Intraluminal Device, Via Natural or Artificial Opening Endoscopic (ICD-10-PCS; 2023-11-10)
PROC: 0DB68ZX Excision of Stomach, Via Natural or Artificial Opening Endoscopic, Diagnostic (ICD-10-PCS; principal; 2023-11-10 11:50)
DX: K29.50 Unspecified chronic gastritis without bleeding (principal); K22.2 Esophageal obstruction; K44.9 Diaphragmatic hernia without obstruction or gangrene; R13.10 Dysphagia, unspecified
CPT/HCPCS: 88305-TC; 88342-TC